=== PATIENT | female | born 1945 | race Caucasian/White ===

== ENCOUNTER 2022-01-15 13:16 | Inpatient (IN) | payer MEDICARE, OTHER ==
[~2022-01-15] VITALS: Ht 134.6 cm; Wt 103.4 kg
[2022-01-15 13:17] VITALS: BP 118/66
[2022-01-15 13:35] LABS: ABSOLUTE EOSINOPHILS 0.1 thou/uL (0.0-0.7); ABSOLUTE LYMPHOCYTES 1.6 thou/uL (0.8-5.3); ABSOLUTE MONOCYTES 0.9 thou/uL (0.0-1.2); ABSOLUTE NEUTROPHILS 4.5 thou/uL (1.6-8.1); BASOPHILS 0.4 %; EOSINOPHILS 1.9 %; HEMATOCRIT 46.1 % (37.0-47.0); HEMOGLOBIN 15.3 gm/dL (12.0-15.0); LYMPHOCYTES 22.6 %; MCHC 33.2 g/dL (28.0-37.0); MCV 96.4 fL (80.0-100.0); MONOCYTES 12.7 %; MPV 7.2 fl. (7.2-11.1); NUCLEATED RBCS 0 /100WBC; PLATELET COUNT* 208 thou/uL (150-400); POLYS 62.4 %; RBC 4.79 mil/uL (4.20-5.00); RDW-CV 13.6 % (10.5-14.5); WBC 7.1 thou/uL (4.0-11.0)
[2022-01-15 13:43] LABS: CALCIUM 8.7 mg/dL (8.5-10.1); CREATININE 0.8 mg/dL (0.6-1.3); POTASSIUM 4.2 mmol/L (3.5-5.1)
[2022-01-15 13:54] LABS: TOTAL BILIRUBIN 0.5 mg/dL (<0.1-1.0); TOTAL PROTEIN 6.8 g/dL (6.4-8.2)
--- NOTE | 2022-01-15 14:32 | EKG ---
[place] [address] ELECTROCARDIOGRAM REPORT Name: WALKERMARIANOALISON Vieyra Room: [address] IN [facility]#: [id number] Admission: 01/15/22 Attend Phys: Ayah Chan, Discharge: Date of : 49 Date of Service: 01/15/22 1324 Report #: [id number] THIS REPORT FOR: //name// [facility] ED Test Date: 2022-01-15 Test Time: 13:24:12 Pat Name: ALISON ELISE Department: Room: Gender: F Clerk Checker: VERA : 1945 Requested By: Arpan Beaulieu Order Number: [id number] MD: Junior Herrera Measurements Intervals [place] Rate: 99 P: 44 OR: 199 QRS: 74 QRSD: 114 T: 31 QT: 334 QTc: 429 Interpretive Statements Sinus rhythm Probable left atrial enlargement Borderline intraventricular conduction delay Low voltage, precordial leads No previous ECG available for comparison Electronically Signed On 01-15-2022 14:32:12 ANIMAL CONTROL SPECIALIST by Junior Herrera [email or web address] <ELECTRONICALLY SIGNED> By: Junior Herrera MD, FAC 01/15/22 1432 1324 1324 Junior Herrera MD, [facility] /EPI
[2022-01-15 16:21] VITALS: BP 147/69
[2022-01-15 16:40] VITALS: BP 128/51
[2022-01-15 18:45] LABS: INFLUENZA A ANTIGEN Negative (Negative); INFLUENZA B ANTIGEN Negative (Negative)
[2022-01-15 20:30] VITALS: BP 103/63
[2022-01-16 00:41] VITALS: BP 139/67
[2022-01-16 04:01] VITALS: BP 130/58
--- NOTE | 2022-01-16 04:14 | NUR ---
ASSUMED CARE OF PT AT 1900. PT IS ALERT AND OREINTED. VSS. PERRLA. NO COMPLAINTS OF PAIN. PT REFUSES INSULIN AND LOVENOX. PT STATES THAT SHE DOES NOT BELIEVE THAT SHE HAS PNEUMONIA AND DOES NOT BELIEVE HER BLOOD SUGAR IS 200. PT IS IN SINUS RYTHM ON THE TELEMETRY. PT IS RESTING COMFORTABLY IN BED. RESPIRATIONS ARE EVEN AND NONLABORED. WILL CONTINUE TO MONITOR PT.
[2022-01-16 04:37] LABS: HEMOGLOBIN 16.9 gm/dL (12.0-15.0); MCH 31.6 pg (26.0-34.0); MCHC 33.2 g/dL (28.0-37.0); MCV 95.1 fL (80.0-100.0); MPV 7.6 fl. (7.2-11.1); RBC 5.36 mil/uL (4.20-5.00); RDW-CV 12.9 % (10.5-14.5); WBC 7.3 thou/uL (4.0-11.0)
[2022-01-16 04:59] LABS: ALBUMIN 2.9 g/dL (3.4-5.0); CALCIUM 8.5 mg/dL (8.5-10.1); CREATININE 0.9 mg/dL (0.6-1.3); MAGNESIUM 1.9 mg/dL (1.8-2.4); POTASSIUM 3.9 mmol/L (3.5-5.1); TOTAL BILIRUBIN 0.4 mg/dL (<0.1-1.0); TOTAL PROTEIN 6.9 g/dL (6.4-8.2)
[2022-01-16 07:08] LABS: GLYCOHEMOGLOBIN (HGB A1C) 5.9 % (4.8-5.6)
[2022-01-16 08:00] VITALS: BP 132/56
[2022-01-16 12:00] VITALS: BP 137/49
--- NOTE | 2022-01-16 12:42 | 2DMMODE ---
[place] [address] 2 D/M-MODE ECHOCARDIOGRAM Name: ALISON ELISE Room: [address] IN [facility]#: [id number] Admission: 01/15/22 Attend Phys: Ayah Chan, Discharge: Date of : 49 Date of Service: 01/16/22 1241 Report #: [id number] THIS REPORT FOR: cc: FAM - No family physician/PCP FAM - No family physician/PCP Mert Galan MD [facility] ~ APPROVED REPORT Study performed: 01/16/2022 10:24:39 EXAM: Comprehensive 2D, Doppler, and color-flow Echocardiogram Patient Location: In-Patient Room #: 106 Status: routine BSA: 2.07 HR: 97 bpm BP: 130/58 mmHg Rhythm: NSR Other Information Study Quality: Adequate Technically limited study due to poor endocardial definition. Indications Palpitations Echo Enhancing Agent Indication: Endocardial border delineation Agent(s) / Amount(s) Used: Optison 3 cc 2D Dimensions IVSd: 10.71 (7-11mm) LVOT Diam: 19.28 (18-24mm) LVDd: 44.91 mm PWd: 10.27 (7-11mm) Ascending Ao: 31.68 (22-36mm) LVDs: 18.52 (25-40mm) Aortic Root: 33.14 mm Volumes Left Atrial Volume (Systole) LA ESV Index: 15.80 mL/m2 Aortic Valve AoV Peak Madhu.: 1.27 m/[place] [address] 2 D/M-MODE ECHOCARDIOGRAM Name: ALISON ELISE Room: [address] IN [facility]#: [id number] Admission: 01/15/22 Attend Phys: Ayah Chan, Discharge: Date of : 49 Date of Service: 01/16/22 1241 Report #: [id number] Peak Gr.: 6.46 mmHg LVOT Max P.89 mmHg AO Mean Gr.: 4.06 mmHg LVOT Mean P.07 mmHg LVOT Max V: 1.11 m/s AO V2 VTI: 25.27 cm LVOT Mean V: 0.83 m/s BRIANNA (VTI): 3.02 cm2 LVOT V1 VTI: 26.15 cm Mitral Valve E/A Ratio: 0.59 MV Decel. Time: 153.61 ms MV E Max Madhu.: 0.82 m/s MV PHT: 44.55 ms MVA (PHT): 4.94 cm2 TDI E/Lateral E': 8.20 Lateral E' Madhu.: 0.10 m/s Pulmonary Valve PV Peak Madhu.: 1.07 m/s PV Peak Gr.: 4.56 mmHg Left Ventricle The left ventricle is normal size. There is normal LV segmental wall motion. There is normal left ventricular wall thickness. Left ventricular systolic function is normal. LVEF is >70%. Grade I - abnormal relaxation pattern. Right Ventricle The right ventricle is normal size. The right ventricular systolic function is normal. Atria The left atrium size is normal. The right atrium size is normal. Aortic Valve The aortic valve is normal in structure. No aortic regurgitation is present. There is no aortic valvular stenosis. Mitral Valve The mitral valve is normal in structure. There is no mitral valve regurgitation noted. No evidence of mitral valve stenosis. Tricuspid Valve The tricuspid valve is normal in structure. Unable to assess PA pressure. Trace [place] [address] 2 D/M-MODE ECHOCARDIOGRAM Name: ALISON ELISE Room: [address]#: [id number] Admission: 01/15/22 Attend Phys: Ayah Chan, Discharge: Date of : 49 Date of Service: 01/16/22 1241 Report #: [id number] Pulmonic Valve The pulmonary valve is normal in structure. Trace pulmonic regurgitation. Great Vessels The aortic root is normal in size. IVC is normal in size and collapses >50% with inspiration. Pericardium There is no pericardial effusion. <Conclusion> The left ventricle is normal size. There is normal left ventricular wall thickness. Left ventricular systolic function is normal. LVEF is >70%. Grade I - abnormal relaxation pattern. Trace tricuspid regurgitation. <ELECTRONICALLY SIGNED> By: Mert Galan MD, FACC 01/16/22 1241 1241 1241 Mert Galan MD, FACC /INF
--- NOTE | 2022-01-16 14:13 | NUR ---
CM ASSESSMENT ASSESSMENT COMPLETED VIA PHONE WITH PT CONTACT (VALERIE ELISE [phone]). PT CAME TO LIVE WITH CONTACT ONE WEEK AGO. PT IS ORIGINALLY FROM [place]. TWO WEEKS AGO, HER AND PT WAS ALONE IN [place]. PT CALLED VALERIE AND WAS INVITED TO MOVE IN WITH VALERIE AND FAMILY. PER VALERIE, PT IS DEP WITH ADLS AND USES A WALKER AND WHEELCHAIR. PT HAS NO PCP AND HAS NOT SEEN A DOCTOR FOR 16 YEARS. PT CANNOT RETURN TO LIVE WITH VALERIE. CM TO FOLLOW FOR REFERRAL TO SNF/LTC.
[2022-01-16 16:00] VITALS: BP 138/54
[2022-01-16 20:00] VITALS: BP 133/51
[2022-01-17 00:22] VITALS: BP 148/54
[2022-01-17 04:58] VITALS: BP 151/60
[2022-01-17 05:26] LABS: HEMATOCRIT 42.4 % (37.0-47.0); MCH 31.9 pg (26.0-34.0); MCHC 33.6 g/dL (28.0-37.0); MPV 7.4 fl. (7.2-11.1); RBC 4.46 mil/uL (4.20-5.00); RDW-CV 13.4 % (10.5-14.5); WBC 9.8 thou/uL (4.0-11.0)
[2022-01-17 05:52] LABS: ALBUMIN 2.9 g/dL (3.4-5.0); CALCIUM 8.3 mg/dL (8.5-10.1); CREATININE 0.8 mg/dL (0.6-1.3); POTASSIUM 3.8 mmol/L (3.5-5.1); TOTAL BILIRUBIN 0.5 mg/dL (<0.1-1.0); TOTAL PROTEIN 6.3 g/dL (6.4-8.2)
[2022-01-17 05:58] LABS: HEMOGLOBIN 14.2 gm/dL (12.0-15.0)
[2022-01-17 07:53] VITALS: BP 99/52
[2022-01-17 11:48] VITALS: BP 107/54
--- NOTE | 2022-01-17 11:58 | NUR ---
Nutrition: Pt admitted with PNA. Assessed for high BMI. Wt: 228#. Regular diet ordered. Albumin 2.9. Nutritionally stable. Low risk.
--- NOTE | 2022-01-17 15:26 | NUR ---
CM FOLLOWUP PT NOT YET MED CLEAR. PT NOT ELEGIBLE FOR SNF. PT PENDING REHAB CONSULT. CM TO FOLLOW.
[2022-01-17 15:57] VITALS: BP 108/55
[2022-01-17 23:25] VITALS: BP 112/54
--- NOTE | 2022-01-18 02:46 | NUR ---
ASSUMED CARE OF PT AT 1900. PT IS ALERT AND ORIENTED. VSS. PERRLA. NO COMPLAINTS OF PAIN. PT IS ROOM AIR. PT IS IN SINUS RYTHM ON THE TELEMETRY. PT IS RESTING COMFORTABLY IN BED. RESPIRATIONS ARE EVEN AND NONLABORED. WILL CONTINUE TO MONITOR PT.
[2022-01-18 04:30] VITALS: BP 125/69
[2022-01-18 05:01] LABS: HEMATOCRIT 42.2 % (37.0-47.0); HEMOGLOBIN 14.3 gm/dL (12.0-15.0); MCH 32.1 pg (26.0-34.0); MCHC 33.8 g/dL (28.0-37.0); MPV 7.7 fl. (7.2-11.1); RBC 4.45 mil/uL (4.20-5.00); RDW-CV 13.1 % (10.5-14.5)
[2022-01-18 05:55] LABS: ALBUMIN 2.9 g/dL (3.4-5.0); ALKALINE PHOSPHATASE 88 U/L (46-116); ANION GAP 4 mmol/L (7-16); BUN 24 mg/dL (7-18); CALCIUM 8.2 mg/dL (8.5-10.1); CHLORIDE 104 mmol/L (98-107); CHOLESTEROL 185 mg/dL (<200); CO2 30 mmol/L (21-32); CREATININE 0.9 mg/dL (0.6-1.3); GLUCOSE 115 mg/dL (70-99); HDL CHOLESTEROL 41 mg/dL (>40); LDL CHOLESTEROL 136 mg/dL (<100); MAGNESIUM 2.1 mg/dL (1.8-2.4); POTASSIUM 3.7 mmol/L (3.5-5.1); SERUM ASSESSMENT CLEAR; SGOT 11 U/L (15-37); SGPT 14 U/L (30-65); SODIUM 138 mmol/L (136-145); TC:HDL 4.5 Ratio (Not establshd); TOTAL BILIRUBIN 0.6 mg/dL (<0.1-1.0); TOTAL PROTEIN 6.4 g/dL (6.4-8.2); TRIGLYCERIDE 44 mg/dL (<150); VLDL 9 mg/dL (<40)
[2022-01-18 08:30] VITALS: BP 110/54
[2022-01-18 12:00] VITALS: BP 147/62
[2022-01-18 16:00] VITALS: BP 142/57
--- NOTE | 2022-01-18 17:46 | NUR ---
PATIENT IS HERE WITH CHF AND NEEDS PLACEMENT. PATIENT AWAKE AND ORIENTED. IV SITE NEW LEFT WRIST. PATIENT GETTING ANTIBIOTICS DUE TO PNEUMONIA. BREATH SOSUNDS DIMINISHED IN THE BASES WITH FEW CRACKLES BNILATERALLY. CONTINUES TO HAVE EDEMA UPPER AND LOWER EXTREMITIES. UPPER 2+, LOWER EXTREMITIES 2-3 +. PATIENT REFUSED IV LASIX THIS AM. GAVE HER PO AROUND 1200. PATIENT VOIDS WITHOUT PROBLEM. BM TODAY.
[2022-01-19 00:31] VITALS: BP 137/62
[2022-01-19 04:00] VITALS: BP 125/56
[2022-01-19 04:46] LABS: HEMATOCRIT 42.8 % (37.0-47.0); HEMOGLOBIN 14.3 gm/dL (12.0-15.0); MCH 31.8 pg (26.0-34.0); MCHC 33.5 g/dL (28.0-37.0); MPV 7.9 fl. (7.2-11.1); RBC 4.51 mil/uL (4.20-5.00); RDW-CV 13.1 % (10.5-14.5); WBC 9.5 thou/uL (4.0-11.0)
[2022-01-19 05:05] LABS: ALBUMIN 2.8 g/dL (3.4-5.0); CALCIUM 8.2 mg/dL (8.5-10.1); CREATININE 0.7 mg/dL (0.6-1.3); MAGNESIUM 2.3 mg/dL (1.8-2.4); POTASSIUM 3.8 mmol/L (3.5-5.1); TOTAL BILIRUBIN 0.6 mg/dL (<0.1-1.0); TOTAL PROTEIN 6.3 g/dL (6.4-8.2)
[2022-01-19 07:50] VITALS: BP 132/62
--- NOTE | 2022-01-19 08:04 | CON ---
[address] [address] CONSULTATION Name: ALISON ELISE Room: [address] IN [facility]#: [id number] Admission: 01/15/22 Attend Phys: Ayah Chan MD Discharge: Date of : 49 Report #: [id number] THIS REPORT FOR: cc: FAM - No family physician/PCP FAM - No family physician/PCP Jennifer Bertrnad MD [facility] ~ HOSPITAL FOLLOWUP NOTE HISTORY OF PRESENT ILLNESS: The patient feels reasonably well today. She feels about the same as she did yesterday. She has minimal shortness of breath. She says she is a little fuzzy headed. She is not having any deidre orthopnea, PND or edema. She has mild dyspnea on exertion. PHYSICAL EXAMINATION: VITAL SIGNS: Her temperature was 36.6, pulse 84 and regular, respirations 16 and regular, blood pressure 110/54, O2 sat was 95%. NECK: There is no jugular venous distention or hepatojugular reflux. LUNGS: Reveal slightly coarse bibasilar breath sounds that are slightly decreased in the bases. HEART: Revealed a normal first and second heart sound. There is soft S4. There is no S3. There are no murmurs, rubs, thrills, heaves or gallops otherwise. Rhythm was regular. Rate was approximately 84. PMI is not displaced. ABDOMEN: Soft, flat, nontender. There are no palpable masses and there is no organomegaly. EXTREMITIES: Reveals no cyanosis, clubbing or edema. IMPRESSION: 1. Pneumonia. 2. Essential hypertension. 3. Mild diastolic dysfunction. RECOMMENDATIONS: I would check a BNP. There are no active cardiac issues here and I will sign off. I would not recommend further diuresis as I am not certain that she is in heart failure. If her BNP is markedly elevated, I would consider more diuresis, but she does not have any evidence of congestive heart failure on physical examination or on chest x-ray. <ELECTRONICALLY SIGNED> By: Jennifer Bertrand MD, FACC 01/19/22 0804 [id number]. Indra Bertrand MD, FACC /nt
[2022-01-19] MEDS ORDERED: KLOR-CON M2020 MEQ PO (08:08)
[2022-01-19] MEDS ORDERED: LASIX 40 MG TAB40 M1 PO (08:08)
[2022-01-19] MEDS ORDERED: LEVOFLOXACIN500 MG PO (08:08)
[2022-01-19 12:00] VITALS: BP 111/57
[2022-01-19 12:35] VITALS: BP 111/57
--- NOTE | 2022-01-19 13:48 | NUR ---
PATIENT IS RESTING IN BED MOST OF THE DAY. DISCHARGE PROBABLY TODAY. PNEUMONIA HAS IMPROVED. VITAL SIGNS ARE STABLE. SINUS RHYTHM ON MANAGER SPECIAL EVENTS. PATIENT CONTINUES TO HAVE EDEMA UPPER AND LOWER EXTREMITIES. PATIENT IS GETTING LASIX, AND HAD GOOD URINARY OUTPUT AFTER MED IS GIVEN. DOING WELL. PATIENT HAD CALLED FRIENDS, AND THEY WILL LET HER STAY WITH THEM FOR NOW. WILL LEAVE VIA WHEELCHAIR SOON.
--- NOTE | 2022-01-19 14:02 | NUR ---
PATIENT LEAVES VIA WHEELCHAIR. DID REVIEW DISCHARGE INSTRUCTIONS. PATIENT VERBALIZED UNDERSTANDING. PATIENT ESCORTED TO LOBBY OF ER, AND FRIEND HERE TO PICK HER UP.
--- NOTE | 2022-01-21 14:18 | CON ---
[address] [address] CONSULTATION Name: ALISON ELISE Room: [address] IN [facility].#: [id number] Admission: 01/15/22 Attend Phys: Ayah Chan MD Discharge: 01/19/22 Date of : 49 Report #: [id number] THIS REPORT FOR: cc: FAM - No family physician/PCP FAM - No family physician/PCP Junior Herrera MD [facility] ~ DATE OF CONSULTATION: 01/17/2022 HISTORY OF PRESENT ILLNESS: The patient is a 76-year-old single white female who I was asked to see in the hospital today after she complained of being short of breath. There are no old records available on the patient. There are no family members available. The patient's recently while they were living in [place]. She recently drove from [place] to [place] to live with friends. Recently, she has been more short of breath, weak. She had swollen feet. She has been sleeping a lot. She has no appetite. Paramedics were called and she was brought to [place] 2 days ago and admitted. She notes occasional chest pain, although it is nonexertional, does not radiate. She has had no fever or cough. Denies any palpitations, syncope. PAST MEDICAL HISTORY: Had previous cholecystectomy, tonsillectomy, broken finger. No history of hypertension, diabetes, hyperlipidemia. MEDICATIONS: She is on no medications. ALLERGIES: SHE HAS PREVIOUS INTOLERANCE TO FENTANYL AND MORPHINE. FAMILY HISTORY: Negative for heart disease. SOCIAL HISTORY: She is . Uses a walker. No smoking, alcohol abuse. REVIEW OF SYSTEMS: She is overweight, being 5 feet 5 inches, 230 pounds. No history of stroke, asthma, liver disease, kidney disease, cancer, psychiatric illness, chronic skin condition. Does wear glasses. PHYSICAL EXAMINATION: GENERAL: Revealed a large, elderly female lying in bed. She appeared in no distress. VITAL SIGNS: Her blood pressure was 130/60, pulse is 100. She was afebrile. HEENT: She was anicteric. Conjunctivae pink. Mucosa moist. NECK: Neck veins do not appear distended. No carotid bruits. CHEST: Clear to auscultation. Neck was supple. HEART: Regular rate and without murmur. ABDOMEN: Obese. EXTREMITIES: Had trace edema. SKIN: [place] [address] CONSULTATION Name: ALISON LEISE Room: [address]#: [id number] Admission: 01/15/22 Attend Phys: Ayah Chan MD Discharge: 01/19/22 Date of : 49 Report #: [id number] NEUROLOGIC: Nonfocal. LABORATORY DATA: ECG showed a sinus rhythm with incomplete right bundle branch block. Her workup, she had an echocardiogram that showed ejection fraction of greater than 60%. The patient had a portable chest x-ray on admission that showed bilateral infiltrates, normal heart size. She had a CT scan of the chest using a PE protocol that showed atelectasis, no pulmonary embolus. She had a venous duplex scan of the legs that showed no DVT. LABORATORY WORK: Potassium 3.8, creatinine 0.8. Liver function studies were normal. High sensitivity troponin was 7. BNP 276. Her hemoglobin was 14.2, hemoglobin A1c was 5.9 consistent with an average glucose of 123. Her COVID antigen stat test was negative. IMPRESSION AND RECOMMENDATIONS: 1. Shortness of breath. Suspect secondary to obesity and exercise intolerance. Recommend no further cardiac evaluation. 2. Obesity. 3. Edema. Suspect venous insufficiency. Recommend Lasix. No evidence of DVT. 4. Glucose intolerance. <ELECTRONICALLY SIGNED> By: Junior Herrera MD, FACC 01/21/22 1418 1411 [id number] Herrera MD, FACC /nt
== END 2022-01-19 14:02 | disposition home or self-care (01) | DRG 177 ==
LOC: M.ERS 13:16 → M.ORTHSURG 14:26 → M.TBA-ER 14:26 → M.2W 16:31 → M.ORTHSURG 19:41
PROVIDERS: Family Medicine; ADMIT Internal Medicine; ATTEND Internal Medicine
DX: J15.6 Pneumonia due to other Gram-negative bacteria (principal); J96.01 Acute respiratory failure with hypoxia; Z68.43 Body mass index [BMI] 50.0-59.9, adult; E66.01 Morbid (severe) obesity due to excess calories; Z88.8 Allergy status to other drugs, medicaments and biological substances; Z20.822 Contact with and (suspected) exposure to COVID-19; I10 Essential (primary) hypertension; Z90.49 Acquired absence of other specified parts of digestive tract; E11.65 Type 2 diabetes mellitus with hyperglycemia; Z79.4 Long term (current) use of insulin